=== PATIENT | female | born 1935 | race Caucasian/White ===

== ENCOUNTER → 2023-05-24 09:13 | Outpatient (REF) | payer OTHER, SELFPAY | LOC: RCS 09:13 | PROVIDERS: ATTENDING PHYSICIAN Internal Medicine Cardiovascular Disease; FAMILY PHYSICIAN Family Medicine | DX: R00.1 Bradycardia, unspecified (principal) | CPT/HCPCS: 93225; 93226 ==

== ENCOUNTER → 2023-06-21 12:30 | Outpatient (REF) | payer OTHER, SELFPAY | LOC: DHCBC/DCA 12:30 | PROVIDERS: ATTENDING PHYSICIAN Internal Medicine Cardiovascular Disease; FAMILY PHYSICIAN Family Medicine | DX: I10 Essential (primary) hypertension (principal); E78.2 Mixed hyperlipidemia; I49.3 Ventricular premature depolarization; R00.2 Palpitations; R03.0 Elevated blood-pressure reading, without diagnosis of hypertension; R00.1 Bradycardia, unspecified; I35.1 Nonrheumatic aortic (valve) insufficiency; I47.29 Other ventricular tachycardia | CPT/HCPCS: 78452; 93017; A9500; J2785 ==

== ENCOUNTER → 2023-08-25 10:17 | Outpatient (REF) | payer OTHER, SELFPAY | LOC: RCS 10:17 | PROVIDERS: ATTENDING PHYSICIAN Nurse Practitioner; FAMILY PHYSICIAN Family Medicine | DX: I49.3 Ventricular premature depolarization (principal) | CPT/HCPCS: 93225; 93226 ==

== ENCOUNTER → 2023-10-16 14:49 | Outpatient (REF) | payer OTHER, SELFPAY | LOC: RAD 14:49 | PROVIDERS: ATTENDING PHYSICIAN Family Medicine | DX: N95.1 Menopausal and female climacteric states (principal) | CPT/HCPCS: 77080 ==

== ENCOUNTER 2024-11-04 06:26 | Inpatient (IN) | payer OTHER, SELFPAY ==
--- NOTE | 2024-10-24 15:26 | CM ---
Demographics: Lives alone
Living situation: lives alone, daughter and friends available for support
Support Person Post Operatively: Daughter
History of
VN: NO
SNF: NO
Outpatient: [facility], patient was advised she would have two weeks of VN
Has patient purchased required equipment: yes, from previous TH[facility]
PCP: Dr. De León
Pharmacy: [facility]
Post Operative Discharge Plan: CM discussed benefits of outpatient PT, patient stated that [facility] advised her she would have two week of VN. Patient would be agreeable to outpatient PT and stated her daughter and friends could drive her.
CM updated ortho PA with discharge plan discussions.
[2024-10-28 14:28] VITALS: BMI 27.6
[2024-10-28 14:36] LABS: Hematocrit 41.3 % (37.0-47.0); Hemoglobin 13.4 g/dL (12.0-16.0); Mean Corp Hgb Conc. 32.4 g/dL (33.0-37.0); Mean Corpuscular Volume 81.9 fL (81.0-99.0); Platelet Count 287 10^3/uL (130-400); Red Cell Dist. Width 13.6 % (11.5-14.5)
[2024-10-28 14:48] VITALS: BMI 27.6
[2024-10-28 15:12] LABS: ALT (SGPT) 19 U/L (0-35); AST (SGOT) 29 U/L (14-36); Albumin 4.3 g/dl (3.5-5.0); Alkaline Phosphatase 102 U/L (38-126); Blood Urea Nitrogen 22 mg/dl (7-17); Calcium 9.8 mg/dl (8.4-10.2); Carbon Dioxide 28 mmol/L (22-30); Chloride 102 mmol/L (98-107); Estimated Creatinine Clearance 33 ml/min; Glucose 91 mg/dl (70-99); Potassium 4.4 mmol/L (3.5-5.1); Sodium 138 mmol/L (135-145); Total Protein 7.3 g/dl (6.3-8.2); eGFR 48.63
[2024-10-29 08:01] LABS: Glycohemoglobin (HgbA1c) 5.8 % (4.0-5.6)
[2024-11-04] VITALS (12 sets, daily range): BP systolic 113–169; BP diastolic 55–82; PULSE 86
[2024-11-04] MEDS: TYLENOL 650 MG PO ×5 (07:14→23:01)
[2024-11-04] MEDS: CELEBREX 200 MG PO (07:14)
[2024-11-04] MEDS: NORMOSOL-R/PLASMALYTE-A 1000 IV ×2 (07:15→13:26)
--- NOTE | 2024-11-04 07:39 | W.DS.TRANS ---
DC Summary - Blankmaker
-
Discharge Instructions:
Sleep Apnea Risk Low
Discharge Diagnosis/Procedures L ZUHAIR Marcelino 11/04/24
Diet As tolerated
Activity With Walker
Driving Restrictions No driving
Bathing Restrictions OK to Shower
Other Services PT
Instructions:
Stand-Alone Forms: Total Hip/Knee Replacement D/C
Changes to Home Medications: Yes
Discharge Medications:
DC Medications w/original date entered in [facility] [employer]
Calcium & Vitamin D 2 tab PO DAILY 09/28/16
metoprolol tartrate 25 mg tablet 25 mg PO DAILY 09/28/16
biotin 1,000 mg PO DAILY 10/25/24
cyanocobalamin (vitamin B-12) 1,000 mcg tablet 1,000 mcg PO DAILY 10/25/24
ezetimibe 10 mg tablet 10 mg PO HS 10/25/24
levothyroxine 112 mcg tablet 112 mcg PO DAILY 10/25/24
metoprolol tartrate 25 mg tablet 50 mg PO QPM 10/25/24
mupirocin 2 % topical ointment 1 applic intranasal BID #1 tube 10/28/24
dexamethasone 4 mg tablet 4 mg PO BID Anti-inflammatory #5 tabs 10/29/24
famotidine 20 mg tablet (Pepcid) 20 mg PO HS #30 tabs 10/29/24
gabapentin 100 mg capsule 200 mg (2 x 100 mg) PO HS neuropathic pain/sleep #20 caps 10/29/24
ondansetron HCl 4 mg tablet 4 mg PO Q6H PRN nausea and vomiting #30 tabs 10/29/24
oxycodone 5 mg tablet 5 - 10 mg (1 - 2 x 5 mg) PO Q6H PRN moderate-severe pain #30 tabs 10/29/24
acetaminophen 500 mg tablet (Tylenol Extra Strength) 1,000 mg (2 x 500 mg) PO QID #0 tabs 11/04/24
aspirin 325 mg tablet 325 mg PO DAILY blood clot prevention #1 tab 11/04/24
docusate sodium 100 mg capsule (Colace) 100 mg PO BID stool softner #1 cap 11/04/24
magnesium hydroxide 400 mg/5 mL oral suspension (Milk of Magnesia) 30 ml PO HS PRN constipation #1 mL 11/04/24
sennosides 8.6 mg tablet (Senokot) 17.2 mg (2 x 8.6 mg) PO BID laxative #2 tabs 11/04/24
Home Medication Changes
mupirocin 2 % topical ointment 1 applic intranasal BID #1 tube 10/28/24
dexamethasone 4 mg tablet 4 mg PO BID Anti-inflammatory #5 tabs 10/29/24
famotidine 20 mg tablet (Pepcid) 20 mg PO HS #30 tabs 10/29/24
gabapentin 100 mg capsule 200 mg (2 x 100 mg) PO HS neuropathic pain/sleep #20 caps 10/29/24
ondansetron HCl 4 mg tablet 4 mg PO Q6H PRN nausea and vomiting #30 tabs 10/29/24
oxycodone 5 mg tablet 5 - 10 mg (1 - 2 x 5 mg) PO Q6H PRN moderate-severe pain #30 tabs 10/29/24
acetaminophen 500 mg tablet (Tylenol Extra Strength) 1,000 mg (2 x 500 mg) PO QID #0 tabs 11/04/24
aspirin 325 mg tablet 325 mg PO DAILY blood clot prevention #1 tab 11/04/24
docusate sodium 100 mg capsule (Colace) 100 mg PO BID stool softner #1 cap 11/04/24
magnesium hydroxide 400 mg/5 mL oral suspension (Milk of Magnesia) 30 ml PO HS PRN constipation #1 mL 11/04/24
sennosides 8.6 mg tablet (Senokot) 17.2 mg (2 x 8.6 mg) PO BID laxative #2 tabs 11/04/24
Pending Results: No
[2024-11-04] MEDS: SYNTHROID 112 MCG PO (12:24)
--- NOTE | 2024-11-04 12:28 | W.PN.ORTHO ---
Today's Communication / Plan
-
d/c when stable
Assessment
.
Dressing:
Clean, dry and intact.
Assessment:
PVCs-continue BB
Plan
.
Surgery / Date: L ZUHAIR Marcelino 11/04/24
DVT Prophylaxis: Aspirin
Activity:
Out of bed.
PT/OT
Discharge Plan: Home w/ Outpatient PT
Vital Signs and Labs
.
Vital Signs and Labs:
Lab Results
10/28/24 12:33
10/28/24 12:33
Temp Pulse Resp BP Pulse Ox
97.7 F 65 16 143/72 97
11/04/24 11:25 11/04/24 12:24 11/04/24 11:25 11/04/24 12:24 11/04/24 11:25
--- NOTE | 2024-11-04 14:07 | PTCARENOTE ---
Pt arrived 11:30 from PACU. Pt AAOX3. NO complaints of pain. VSS. neurovascular checks WNL. Primaseal dressing has light shadowing. oriented to room and call vasquez. bed in lowest position and locked.
[2024-11-04] MEDS: ANCEF 5 IV ×2 (15:13→23:01)
[2024-11-04] MEDS: ULTRAM 25 MG PO (17:25)
[2024-11-04] MEDS: ASPIRIN 325 MG PO (17:25)
[2024-11-04] MEDS: TORADOL 10 MG IV (17:26)
[2024-11-04] MEDS: LOPRESSOR 50 MG PO (18:02)
[2024-11-04] MEDS: COLACE 100 MG PO (20:27)
[2024-11-04] MEDS: BACTROBAN 2% OINTMENT 1 APPLIC NASAL (20:27)
[2024-11-04] MEDS: ZETIA 10 MG PO (22:29)
[2024-11-04] MEDS: NEURONTIN 300 MG PO (22:29)
[2024-11-05 03:25] VITALS: BP 130/63
[2024-11-05] MEDS: TYLENOL PO (03:31)
[2024-11-05] MEDS: DECADRON 4 MG IV (05:10)
[2024-11-05] MEDS: SYNTHROID 112 MCG PO (05:11)
[2024-11-05] MEDS: ULTRAM 25 MG PO (05:11)
[2024-11-05] MEDS: TORADOL 10 MG IV (05:11)
[2024-11-05 07:15] VITALS: BP 142/71
[2024-11-05] MEDS: BACTROBAN 2% OINTMENT 1 APPLIC NASAL (07:49)
[2024-11-05] MEDS: TYLENOL 650 MG PO (07:49)
[2024-11-05] MEDS: COLACE 100 MG PO (07:49)
[2024-11-05] MEDS: ASPIRIN 325 MG PO (07:49)
[2024-11-05] MEDS: LOPRESSOR 25 MG PO (07:50)
[2024-11-05 08:37] VITALS: BP 131/66; BP 140/72; PULSE 77
--- NOTE | 2024-11-05 08:56 | CM ---
Cm met with patient in room. Patient confirmed outpatient PT appointment at [facility]
PLAN: Home with outpatient PT and family support.
--- NOTE | 2024-11-05 09:33 | W.PN.ORTHO ---
Today's Communication / Plan
-
d/c
Assessment
.
Distal Motor Intact: Yes
Dressing:
Clean, dry and intact.
Assessment:
PVCs-continue BB-asx
Plan
.
Surgery / Date: Mariela Marcelino 11/04/24
DVT Prophylaxis: Aspirin
Activity:
Out of bed.
PT/OT
Discharge Plan: Home w/ Outpatient PT
Subjective
.
.:
Patient resting comfortably.
Vital Signs and Labs
.
Vital Signs and Labs:
Lab Results
10/28/24 12:33
10/28/24 12:33
Temp Pulse Resp BP Pulse Ox
97.9 F 77 18 140/72 96
11/05/24 07:15 11/05/24 07:50 11/05/24 07:15 11/05/24 07:50 11/05/24 07:15
Non-invasive Hgb result: 12.7
Physical Exam
-
HEENT: No pallor, cyanosis, or jaundice. Throat clear.
NECK: Supple. No JVD.
RESPIRATORY: Lungs clear to auscultation.
CVS: S1, S2 normal. RRR.� No murmur, rub or gallop.
ABDOMEN: Soft, non-tender. No distension. BS+/normal.
EXTREMITIES: strength equal, no calf pain with palpation
FIXED INCOME ANALYST: AOx3. No focal deficits. machine chain maker grossly intact
[2024-11-05 10:45] VITALS: BP 150/69
== END 2024-11-05 11:11 | disposition home or self-care (01) | DRG 470 ==
LOC: 2 SOUTH 06:26
PROVIDERS: ADMITTING PHYSICIAN Specialist; FAMILY PHYSICIAN Family Medicine; REFERRING PHYSICIAN Internal Medicine Cardiovascular Disease
PROC: 0SRB0JA Replacement of Left Hip Joint with Synthetic Substitute, Uncemented, Open Approach (ICD-10-PCS; 2024-11-04)
DX: M16.12 Unilateral primary osteoarthritis, left hip (principal); E78.00 Pure hypercholesterolemia, unspecified; N18.30 Chronic kidney disease, stage 3 unspecified; I12.9 Hypertensive chronic kidney disease with stage 1 through stage 4 chronic kidney disease, or unspecified chronic kidney disease; I49.3 Ventricular premature depolarization; K76.0 Fatty (change of) liver, not elsewhere classified; M54.10 Radiculopathy, site unspecified; M85.80 Other specified disorders of bone density and structure, unspecified site; Z87.891 Personal history of nicotine dependence; R73.03 Prediabetes; E89.0 Postprocedural hypothyroidism; Z90.49 Acquired absence of other specified parts of digestive tract; Z90.710 Acquired absence of both cervix and uterus; Z98.41 Cataract extraction status, right eye; Z98.42 Cataract extraction status, left eye
CPT/HCPCS: 36415; 73502; 80053; 83036; 85027; 87070; 97162; 97166; 97530; 97535; C1713; C1776